=== PATIENT | female | born 1965 | race Caucasian/White ===

== ENCOUNTER 2016-07-11 10:48 | Emergency (ER) | payer OTHER ==
[~2016-07-11] VITALS: Ht 170.2 cm; Wt 75.8 kg
[~2016-07-11 10:48] MED LIST: METH4PAK4 PO
[2016-07-11 10:55] VITALS: TEMP 37; Ht 170.2 cm; Wt 75.8 kg
--- NOTE | 2016-07-11 11:29 | EMERGENCY ROOM VISIT NOTE ---
History Report prepared by Stacy: Ivory Cevallos Under the Supervision of: Dr. Ryan Suarez M.D. First contact with patient: 11:12 Chief Complaint: RESPIRATORY PROBLEMS Stated Complaint: LUNG PAIN History of Present Illness The patient is a 51 year old female who presents to the Emergency Room with complaints of constant right sided rib pain beginning 4 days prior to arrival. The patient notes worsening pain with breathing. She notes that she has been experiencing shortness of breath, nausea and a mil headache. She notes a mild cough that began yesterday. The patient yesterday had a fever of 101.7. She notes she was at [facility] today and was referred to the ED. The patient denies vomiting, urinary symptoms, swelling to extremities, recent traveling, sore throat, or rash. The patient has been taking Aleve to subside her symptoms. Source of History: patient, spouse/significant other Onset: 4 days NIP WRAPPER Position: other (right rib) Timing: constant Modifying Factors (Worsening): breathing Associated Symptoms: + fevers, + headache, + SOB, + nausea Review of Systems See HPI for pertinent positives & negatives. A total of 10 systems reviewed and were otherwise negative. Past Medical & Surgical Medical Problems: (1) No known health problems Old medical records were reviewed. Nurse's notes were reviewed and I agree with. Denies history of pulmonary disease or blood clots or cardiac disease or diabetes Denies any allergies to antibiotics. Family History Patient reports no known family medical history. Social History Smoking Status: Never Smoker Smokeless Tobacco Use: No Alcohol Use: occasionally Marital Status: Housing Status: lives with family Occupation Status: employed Current/Historical Medications Scheduled Amoxicillin & Pot Clavulanate (Augmentin 875-125 mg), 875 MG PO BID Azithromycin (Zithromax Z-Devon), 0 PO UD Allergies Coded Allergies: No Known Allergies (Unverified , 07/11/16) Physical Exam Vital Signs Date Time Temp Pulse Resp B/P (MAP) Pulse Ox O2 Delivery O2 Flow Rate FiO2 07/11/16 14:48 95 18 108/70 97 07/11/16 12:40 98 16 106/74 99 Room Air 07/11/16 12:28 102 07/11/16 11:37 97 Room Air 07/11/16 10:55 37.0 107 20 110/64 97 Room Air Physical Exam General: Well developed well nourished in no acute distress middle aged female, breathing comfortably on room air. Normal speech HEENT: Normal cephalic atraumatic. Pupils are equal round and reactive to light. Sclerae are anicteric. Extraocular movements are intact. Oropharynx is pink with moist mucous membranes. No swelling of the mouth lips or tongue. Neck: Supple with a midline trachea. No meningeal signs or stiffness, no JVD or bruits. No Stridor. Chest: Mild tenderness to right lateral chest. Clear to auscultation bilaterally. No wheezes or rhonchi. No increased work of breathing. Heart: regular rate and rhythm. Abdomen: Soft nontender, nondistended without rebound guarding or rigidity. Extremities: No cyanosis clubbing or edema. No calf tenderness or assymetry Spine/Back. Non tender to palpation. No CVA tenderness Skin: Good turgor without rashes. Neurologic exam: Cranial nerves two through 12 are intact. Motor and sensation are intact and symmetrical throughout. Medical Decision & Procedures ER Provider Diagnostic Interpretation: Radiology results as stated below per my review and radiologist interpretation: CHEST ONE VIEW PORTABLE CLINICAL HISTORY: Atypical chest pain COMPARISON STUDY: No previous studies for comparison. FINDINGS: There is an area of dense peripheral consolidation within the base of the right upper lobe. This likely represents a pneumonia. A pulmonary infarct could appear similar. Increased markings are also present within the right perihilar region. Clinical and radiographic follow-up is recommended. The left lung is clear.[ IMPRESSION: 1. Area of dense parenchymal consolidation with thin the base the right upper lobe peripherally. This likely represents a pneumonia. A pulmonary infarct could appear similar. Clinical and imaging follow-up is recommended. Electronically signed by: Ambrose Mustafa M.D. 07/11/2016 12:00 PM Dictated Date/Time: 07/11/2016 11:[address] ANGIOGRAM OF THE CHEST CLINICAL HISTORY: Atypical chest pain. Right upper lobe peripheral consolidation. COMPARISON STUDY: Chest x-ray dated 07/11/2016 TECHNIQUE: Following the IV administration of 93 mL of Optiray-320, CT angiogram of the thorax was performed from the thoracic inlet to the lung bases utilizing the pulmonary embolus protocol. Images are reviewed in the axial, sagittal, and coronal planes. IV contrast was administered without complication. MIP imaging was performed. CT DOSE: 190.57 mGy.cm FINDINGS: There is no pathologic mediastinal lymphadenopathy. There is mild right hilar adenopathy, possibly reactive. There was no evidence of thoracic aortic dilatation. There were no pulmonary artery filling defects to indicate acute pulmonary embolism. There is a small right pleural effusion There are right lower lobe dependent atelectatic changes. There is dense consolidation involving the base of the right upper lobe. There is a minimal airspace opacity within the adjacent superior segment of the right lower lobe. There are prominent right upper lobe air bronchograms. The findings are most consistent with a pneumonia. Imaging subsequent to treatment is recommended in follow-up to confirm resolution. IMPRESSION: 1. No CT evidence of acute pulmonary embolism 2. Dense right upper lobe pulmonary consolidation with air bronchograms. This likely represents a pneumonia. Imaging subsequent to treatment is recommended in follow-up 3. Small right pleural effusion Electronically signed by: Ambrose Mustafa M.D. 07/11/2016 1:38 PM Dictated Date/Time: 07/11/2016 1:33 PM Laboratory Results 07/11/16 11:50 Red Blood Count 4.36, Mean Corpuscular Volume 89.2, Mean Corpuscular Hemoglobin 30.5, Mean Corpuscular Hemoglobin Concent 34.2, Mean Platelet Volume 10.1, Neutrophils (%) (Auto) 89.3, Lymphocytes (%) (Auto) 2.7, Monocytes (%) (Auto) 7.4, Eosinophils (%) (Auto) 0.0, Basophils (%) (Auto) 0.1, Neutrophils # (Auto) 13.71, Lymphocytes # (Auto) 0.41, Monocytes # (Auto) 1.14, Eosinophils # (Auto) 0.00, Basophils # (Auto) 0.01 07/11/16 11:50 Test 07/11/16 11:50 07/11/16 11:58 White Blood Count 15.35 K/uL (4.8-10.8) Red Blood Count 4.36 M/uL (4.2-5.4) Hemoglobin 13.3 g/dL (12.0-16.0) Hematocrit 38.9 % (37-47) Mean Corpuscular Volume 89.2 fL (80-100) Mean Corpuscular Hemoglobin 30.5 pg (25-34) Mean Corpuscular Hemoglobin Concent 34.2 g/dl (32-36) Platelet Count 207 K/uL (130-400) Mean Platelet Volume 10.1 fL (7.4-10.4) Neutrophils (%) (Auto) 89.3 % Lymphocytes (%) (Auto) 2.7 % Monocytes (%) (Auto) 7.4 % Eosinophils (%) (Auto) 0.0 % Basophils (%) (Auto) 0.1 % Neutrophils # (Auto) 13.71 K/uL (1.4-6.5) Lymphocytes # (Auto) 0.41 K/uL (1.2-3.4) Monocytes # (Auto) 1.14 K/uL (0.11-0.59) Eosinophils # (Auto) 0.00 K/uL (0-0.5) Basophils # (Auto) 0.01 K/uL (0-0.2) RDW Standard Deviation 43.6 fL (36.4-46.3) RDW Coefficient of Variation 13.2 % (11.5-14.5) Immature Granulocyte % (Auto) 0.5 % Immature Granulocyte # (Auto) 0.08 K/uL (0.00-0.02) Prothrombin Time 11.9 SECONDS (9.0-12.0) Prothromb Time International Ratio 1.1 (0.9-1.1) Activated Partial Thromboplast Time 32.9 SECONDS (21.0-31.0) Partial Thromboplastin Ratio 1.3 Anion Gap 11.0 mmol/L (3-11) Est Creatinine Clear Calc Drug Dose 83.2 ml/min Estimated GFR () 92.6 Estimated GFR (Non- 79.9 BUN/Creatinine Ratio 7.4 (10-20) Calcium Level 9.5 mg/dl (8.5-10.1) Total Bilirubin 1.1 mg/dl (0.2-1) Direct Bilirubin 0.3 mg/dl (0-0.2) Aspartate Amino Transf (AST/SGOT) 42 U/L (15-37) Alanine Aminotransferase (ALT/SGPT) 55 U/L (12-78) Alkaline Phosphatase 156 U/L (45-117) Total Protein 8.1 gm/dl (6.4-8.2) Albumin 3.0 gm/dl (3.4-5.0) Lipase 79 U/L (73-393) Chemistry Specimen Hemolysis Bedside D-Dimer > 450 ng/mlFEU (0-450) Bedside Troponin I 0.000 ng/ml (0-0.045) Laboratory studies as stated above per my review. Medications Administered Medications (Trade) Dose Ordered Sig/Berto Route Start Time Stop Time Status Last Admin Dose Admin Sodium Chloride 1,000 ml @ 999 mls/hr Q1H1M STAT IV 07/11/16 12:30 07/11/16 13:30 DC 07/11/16 12:30 999 MLS/HR Sodium Chloride 1,000 ml @ 150 mls/hr Q6H40M ONCE IV 07/11/16 12:30 07/11/16 19:09 07/11/16 12:30 150 MLS/HR Ceftriaxone Sodium (Rocephin Inj) 1 gm NOW STAT IV 07/11/16 13:54 07/11/16 13:55 DC 07/11/16 14:07 1 GM Azithromycin (Zithromax Tab) 500 mg NOW ONCE PO 07/11/16 14:00 07/11/16 14:01 DC 07/11/16 14:08 500 MG ECG Indication: SOB/dyspnea Rate (beats per minute): 103 Rhythm: sinus tachycardia Findings: PAC (occasionally), no acute ischemic change Comparison ECG Date: no prior available ED Course 1115: Past medical records reviewed. The patient was evaluated in room C11, and a complete history and physical examination were performed. 1230: Sodium Chloride 1,000 ml @ 150 mls/hr IV, Sodium Chloride 1,000 ml @ 999 mls/hr IV. 1231: The patient is resting comfortably. CT has been ordered. 1354: Rocephin Inj 1 gm IV. 1400: Zithromax Tab 500 mg PO. 1426: Upon reevaluation, the patient is hemodynamically stable. I discussed the results and treatment plan with her. She verbalized agreement of the treatment plan. The patient was discharged home. Medical Decision Differentials include, but are not limited to; pneumonia, PE, viral illness, lung mass, electrolyte or metabolic abnormality. Medication Reconciliation: I attest that I have personally reviewed the patient' s current medication list. Blood pressure Screening: Patient was found to have normal blood pressure on screening and does not require follow-up. This patient comes in as described above. She is placed in room C 11. [facility] after having a opacification in her right lower upper lobe. She has had a mild cough and a fever and infectious type symptoms for a couple days she did have some vomiting all or gotten better she looks well on exam and is completely ill appearing. She's not hypoxemic. She is afebrile at present and she's been normotensive. IV access established and she was given a liter IV normal saline bolus. Blood work was obtained. White count was elevated at 15. She's had no acute electrolyte or metabolic abnormalities. EKG does not suggest acute coronary syndrome or arrhythmia. There is nothing to suggest acute cardiac disease. CAT scan w obtained and shows findings consistent with pneumonia. Clinically, she has had a fever and cough and this appears to fit her picture however I told her that she needs have close follow-up in the next day or so for recheck. She may need further imaging to ensure this resolves. She was given IV Rocephin as well as azithromycin by mouth and. I'll send home on Augmentin and azithromycin. She strongly desires to go home and I think is reasonable at this point. I do not feel she needs to be admitted however she needs have close follow-up and if she gets worse, she is return to ER. I encouraged to follow- up with her regular doctor in 1-2 days for recheck. Return if: worsening of symptoms, shortness breath, not tolerating fluids, any new problems concerns. She was happy with plan and discharged home. Impression Primary Impression: Pneumonia Additional Impression: Right-sided chest pain Scribe Attestation The scribe's documentation has been prepared under my direction and personally reviewed by me in its entirety. I confirm that the note above accurately reflects all work, treatment, procedures, and medical decision making performed by me. Departure Information Dispostion Home / Self-Care Prescriptions Amoxicillin & Pot Clavulanate (Augmentin 875-125 mg) 1 Tab Tab 875 MG PO BID for 10 Days, #20 TAB Prov: Ryan Suarez M.D. 07/11/16 Azithromycin (ZITHROMAX Z-EDVON) 250 Mg Tab 0 PO UD, #1 PKT Prov: Ryan Suarez M.D. 07/11/16 Referrals Bee Childress M.D. (PCP) Forms HOME CARE DOCUMENTATION FORM, IMPORTANT VISIT INFORMATION, WORK / SCHOOL INSTRUCTIONS Patient Instructions My [facility] Additional Instructions Rest. Drink plenty of fluids. Use Augmentin 875 mg twice a day for 10 daysantibiotic Use azithromycin Z-Devon as directedantibiotic May use ibuprofen and/or Tylenol (acetaminophen) if needed for aches or pains and do not exceed the [id number] recommended dosages for these. Return if: Increasing pain, worsening of symptoms, shortness of breath, any new problems or concerns. Follow-up with your doctor tomorrow for recheck Problem Qualifiers
--- NOTE | 2016-07-11 12:01 | DIAGNOSTIC IMAGING REPORT ---
CHEST ONE VIEW PORTABLE CLINICAL HISTORY: Atypical chest pain COMPARISON STUDY: No previous studies for comparison. FINDINGS: There is an area of dense peripheral consolidation within the base of the right upper lobe. This likely represents a pneumonia. A pulmonary infarct could appear similar. Increased markings are also present within the right perihilar region. Clinical and radiographic follow-up is recommended. The left lung is clear.[ IMPRESSION: 1. Area of dense parenchymal consolidation with thin the base the right upper lobe peripherally. This likely represents a pneumonia. A pulmonary infarct could appear similar. Clinical and imaging follow-up is recommended. Electronically signed by: Ambrose Mustafa M.D. 07/11/2016 12:00 PM Dictated Date/Time: 07/11/2016 11:58 AM
[2016-07-11 12:09] LABS: BASO % 0.1 %; BASO ABS # 0.01 K/uL (0-0.2); COMPLETE YES; HEMATOCRIT 38.9 % (37-47); IG% 0.5 %; LYMPH % 2.7 %; LYMPH ABS # 0.41 K/uL (1.2-3.4); MEAN CELL VOLUME 89.2 fL (80-100); MEAN CORPUSCULAR HEMOGLOBIN 30.5 pg (25-34); MEAN CORPUSCULAR HGB CONC 34.2 g/dl (32-36); MEAN PLATELET VOLUME 10.1 fL (7.4-10.4); MONO % 7.4 %; NEUT % 89.3 %; PLATELET COUNT 207 K/uL (130-400); RED BLOOD COUNT 4.36 M/uL (4.2-5.4); WHITE BLOOD COUNT 15.35 K/uL (4.8-10.8)
[2016-07-11 12:16] LABS: INR 1.1 (0.9-1.1); PARTIAL THROMBOPLASTIN RATIO 1.3; PROTHROMBIN TIME (PATIENT) 11.9 SECONDS (9.0-12.0)
[2016-07-11] MEDS ORDERED: SODIUM CHLORIDE 0.9% 1000ML 1,000 ML IV STA (12:30)
[2016-07-11] MEDS ORDERED: SODIUM CHLORIDE 0.9% 1000ML 1,000 ML IV ONE (12:30)
[2016-07-11 12:31] LABS: BUN/CREATININE RATIO 7.4 (10-20); CALCIUM 9.5 mg/dl (8.5-10.1); CREATININE 0.84 mg/dl (0.60-1.20); POTASSIUM 3.9 mmol/L (3.5-5.1)
[2016-07-11] MEDS ORDERED: OPTIRAY 320 IV PRN (13:30)
--- NOTE | 2016-07-11 13:39 | DIAGNOSTIC IMAGING REPORT ---
CT ANGIOGRAM OF THE CHEST CLINICAL HISTORY: Atypical chest pain. Right upper lobe peripheral consolidation. COMPARISON STUDY: Chest x-ray dated 07/11/2016 TECHNIQUE: Following the IV administration of 93 mL of Optiray-320, CT angiogram of the thorax was performed from the thoracic inlet to the lung bases utilizing the pulmonary embolus protocol. Images are reviewed in the axial, sagittal, and coronal planes. IV contrast was administered without complication. MIP imaging was performed. CT DOSE: 190.57 mGy.cm FINDINGS: There is no pathologic mediastinal lymphadenopathy. There is mild right hilar adenopathy, possibly reactive. There was no evidence of thoracic aortic dilatation. There were no pulmonary artery filling defects to indicate acute pulmonary embolism. There is a small right pleural effusion There are right lower lobe dependent atelectatic changes. There is dense consolidation involving the base of the right upper lobe. There is a minimal airspace opacity within the adjacent superior segment of the right lower lobe. There are prominent right upper lobe air bronchograms. The findings are most consistent with a pneumonia. Imaging subsequent to treatment is recommended in follow-up to confirm resolution. IMPRESSION: 1. No CT evidence of acute pulmonary embolism 2. Dense right upper lobe pulmonary consolidation with air bronchograms. This likely represents a pneumonia. Imaging subsequent to treatment is recommended in follow-up 3. Small right pleural effusion Electronically signed by: Ambrose Mustafa M.D. 07/11/2016 1:38 PM Dictated Date/Time: 07/11/2016 1:33 PM
[2016-07-11] MEDS ORDERED: CEFTRIAXONE SOD INJ 1 GM ADDVIAL IV STA (13:54)
[2016-07-11] MEDS ORDERED: AZITHROMYCIN 250 MG TAB PO ONE (14:00)
[2016-07-11] MEDS ORDERED: AZITTAB PO (14:25)
[2016-07-11] MEDS ORDERED: AMOX875T PO (14:25)
[2016-07-11 14:48] VITALS: BP 108/70; PULSE 95; O2SAT 97
== END 2016-07-11 14:49 | disposition home or self-care (01) ==
LOC: C.EDB 10:50 → C.EDC 14:49
DX: J18.9 Pneumonia, unspecified organism (principal); R07.9 Chest pain, unspecified; R00.0 Tachycardia, unspecified